=== PATIENT | female | born 1955 | race Caucasian/White ===

== ENCOUNTER → 2019-11-01 14:50 | Outpatient (CLI) | payer BC, SELFPAY ==
[2016-08-20 10:30] VITALS: BMI 43.3
[2019-11-01 17:31] LABS: Hematocrit 35.4 % (37-47); Hemoglobin 11.6 g/dL (12.0-15.0); Mean Corp Hgb Conc 32.8 g/dL (32-36); Mean Corpuscular Hgb 30.8 pg (27.0-32.0); Mean Corpuscular Volume 93.9 fL (81-99); Platelet Count 194 K/mm3 (150-450); RBC Distribution Width CV 14.6 % (11.6-14.6); RBC Distribution Width SD 49.5 fl (35.1-43.9); Red Blood Count 3.77 M/mm3 (4.2-5.4); White Blood Count 3.9 K/mm3 (4.4-11.0)
[2019-11-01 17:38] LABS: Erythrocyte Sedimentation Rate 24 mm/hr (0-30)
[2019-11-01 17:47] LABS: Vitamin B12 214 pg/mL (211-911); Vitamin D,25 Hydroxy 32.7 ng/mL
[2019-11-01 17:58] LABS: BNP,B-Type NATRIURETIC PEPTIDE 40.3 pg/mL (0-100)
[2019-11-01 18:01] LABS: ALB/GLOB Ratio 1.1 RATIO (0.9-2.4); AST(SGOT) 30 U/L (15-37); Alanine Aminotransfer ALT/SGPT 35 U/L (13-56); Albumin, Serum 3.6 g/dL (3.2-5.0); Alkaline Phosphatase 79 U/L (45-117); Anion Gap 6 (5-15); BUN 20 mg/dL (7-18); Chloride 99 mmol/L (98-107); Creatinine, Serum 0.87 mg/dL (0.55-1.02); EST Glomerular Filtration Rate 70 mL/min (>60); Est Glom Filt Rate - Afr Amer 85 mL/min (>60); Globulin 3.2 g/dL (2.2-4.2); Glucose 122 mg/dL (74-106); Iron 96 ug/dL (50-170); Potassium 5.2 mmol/L (3.5-5.1); Protein, Total 6.8 g/dL (6.4-8.2); Sodium Level 129 mmol/L (136-145); Thyroid Stim Hormone (TSH) 1.25 uIU/mL (0.358-3.74)
== END ==
PROVIDERS: PCP Family Medicine; Referring Provider Family Medicine; Visit Provider Family Medicine
DX: I50.9 Heart failure, unspecified (principal); M50.30 Other cervical disc degeneration, unspecified cervical region; R53.83 Other fatigue
CPT/HCPCS: 36415; 80053; 82306; 82607; 83540; 83880; 84443; 85027; 85652

== ENCOUNTER → 2019-11-22 15:33 | Outpatient (CLI) | payer BC, SELFPAY ==
[2016-08-20 10:30] VITALS: BMI 43.3
[2019-11-22 18:16] LABS: Anion Gap 7 (5-15); BUN 18 mg/dL (7-18); BUN/Creat Ratio 17.5 RATIO (10-20); Calcium,Total 8.8 mg/dL (8.5-10.1); Chloride 99 mmol/L (98-107); Creatinine, Serum 1.03 mg/dL (0.55-1.02); EST Glomerular Filtration Rate 58 mL/min (>60); Est Glom Filt Rate - Afr Amer 70 mL/min (>60); Glucose 107 mg/dL (74-106); Potassium 5.3 mmol/L (3.5-5.1); Sodium Level 130 mmol/L (136-145)
== END ==
PROVIDERS: PCP Family Medicine; Referring Provider Family Medicine; Visit Provider Family Medicine
DX: I10 Essential (primary) hypertension (principal)
CPT/HCPCS: 36415; 80048

== ENCOUNTER → 2019-11-28 14:07 | Outpatient (CLI) | payer BC, SELFPAY ==
[2016-08-20 10:30] VITALS: BMI 43.3
[2019-11-28 16:31] LABS: Anion Gap 6 (5-15); BUN 17 mg/dL (7-18); BUN/Creat Ratio 17.8 RATIO (10-20); Calcium,Total 8.7 mg/dL (8.5-10.1); Chloride 98 mmol/L (98-107); Creatinine, Serum 0.96 mg/dL (0.55-1.02); EST Glomerular Filtration Rate 63 mL/min (>60); Est Glom Filt Rate - Afr Amer 76 mL/min (>60); Free T3 2.3 pg/mL (2.18-3.98); Glucose 92 mg/dL (74-106); Sodium Level 130 mmol/L (136-145); T4 Free Direct 1.03 ng/dL (0.76-1.46)
[2019-11-28 17:13] LABS: Osmolality, Serum 276 mOsm/KG (280-301)
== END ==
PROVIDERS: PCP Family Medicine; Referring Provider Family Medicine; Visit Provider Family Medicine
DX: E87.1 Hypo-osmolality and hyponatremia (principal)
CPT/HCPCS: 36415; 80048; 83930; 84439; 84443; 84481

== ENCOUNTER → 2019-11-30 14:10 | Outpatient (CLI) | payer BC, SELFPAY ==
[2019-11-30 15:57] LABS: Urine Sodium 11 mmol/L (Not Establ.)
== END ==
PROVIDERS: Family Medicine; PCP Family Medicine; Referring Provider Family Medicine; Visit Provider Family Medicine
DX: E87.1 Hypo-osmolality and hyponatremia (principal)
CPT/HCPCS: 83935; 84300

== ENCOUNTER → 2020-11-13 10:12 | Outpatient (CLI) | payer MEDICARE, SELFPAY ==
[2016-08-20 10:30] VITALS: BMI 43.3
--- NOTE | 2020-11-13 10:17 | RAD_ITS ---
INDICATION: DDD EXAMINATION/TECHNIQUE: X-RAY - XR Spine Cervical 4 or 5 Views COMPARISON: Previous cervical spine x-rays obtained on 02/16/2016 FINDINGS: Studies of the cervical spine in 6 projections including obliques shows sclerosis of the articular facets at the C3-4, C4-5, and C5-6 levels bilaterally from cervical spondylosis. The neural foramina appear to be widely patent bilaterally. There is very mild narrowing of the C6-7 intervertebral disc space.. RAD/Cerv Spine 4 or 5 Views IMPRESSION: Mild cervical spondylosis the mid cervical spine which has increased when compared with the previous study. Electronically Signed: Bridger Medina DO at 14:14 EDT Tel , Service support ,
== END ==
LOC: MTRAD 10:15
PROVIDERS: PCP Family Medicine; Referring Provider Family Medicine; Visit Provider Family Medicine
DX: M50.30 Other cervical disc degeneration, unspecified cervical region (principal)
CPT/HCPCS: 72050

== ENCOUNTER 2020-12-01 14:19 | Outpatient (RCR) | payer MEDICARE, SELFPAY ==
--- NOTE | 2020-12-01 15:49 | HP.PTEVAL ---
Patient's Visit Information TALISHA BEARD is a 65 year old F referred to Physical Therapy by Dr. Tramaine Sosa MD with a diagnosis of DDD c/s. Date of Evaluation: 12/01/20 Physical Therapist: Faisal Perkins, [place], OCS, CSCS - Visit Plan Frequency: 2-3x /Week Duration: 2-4 Weeks Plan: 2-3x/week for 4 weeks(pt to FLA in about a month) for. Aquatic ex to include. 1. neck ROM, scapular ROM, UE ROM. 2. LE and core strengthening emphasizing posture. 3. Progress to I with pool ex with list. - Subjective Lots of ortho problems over the years and lots of OA in LB. LB is hurting now as is neck . All of it getting progressively worse. 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 Has had x rays and it shows OA. Worse lately and not sure why, must just be progressing as there is narrowing in her spine and spondyloisis. Symptoms include numbness in medial hands 345 digits adn R hand feels weak. Pain starts at base of skulla nd between shoulder blades starts to ache and comes around to sternum. Saw heart doctor adn my heart is fine. Also gets ulnar pain on R all the time. Pain is up to 10/10 and it was lying down flat at night. Feels better if sits straight up. Never goes completely. Current pain is 8/10. LB also hurts. Usually 6/10 in am. Takes a while to get out of bed. Sleep is interrupted as it is hard to get comfortable. Basic ADLs are OK but helps you shower as it is painful to ift arms. Getting dressed she needs help from hubby with shoes and socks. Does some band pulls on door and walks as much as can. Hobbies include gardening but cannot, enjoys redd but cannot. Piano is a hobby and she is unabe to play. - Objective Posture is FW head and scapula. Very little movement to upper half unless asked. kyphotic T/S. c/s ext 22 degrees R rot 22 adn L rot40, self limited by pain. AROM B UE WNL but slow and appears labored. Very weak in thumb ext, wrist flex/ext 3 on R and 3+ L, elbow flexiona dn ext 3+ B, shoulder flexiona nd abd 3+, IR ER shoulders 3+. Pt is able to move easily through AROM in wrist and elbow but unable/willing to resist much for testing stating that it hurts and is weak. Won't let me push down on head for cervical compressiont est. Scap ROM is WNL but slow. Not overly tenderin neck except subocciptial muscles moderately tender. reflexes 1/3 bi and tri. Sensation UE c5 dermatome on R UE numb, also c/o paraesthesia in B ulnar nerve distribution. Pt was 20+ minutes late for therapy today. - Balance/Special Test Scores Oswestry Low Back Score: 43 - Goals Goal 1:: Pt feel 50% better in overall pain levels in necka nd arm to 4/10 at worst Goal Time Frame: 4-6 Weeks Goal 2:: Strength in UE to 4-/5 to allow for playing piano Goal Time Frame: 4-6 Weeks Goal 3:: Pt score < 30 on Oswestry to show improvement in functional pain. Goal Time Frame: 4-6 Weeks Goal 4:: approp HEP to manage(exercises in pool to cotninue in FLA) Goal Time Frame: 4-6 Weeks - Rehabilitation Potential Physical Therapy Diagnosis: DDD cs Rehabilitation Potential: Fair - Anticipated Interventions Patient/Client Instruction: Educate patient on: Condition, Plan of Care For the Purpose of:: To decrease pain, To increase ROM, To improve muscle performance and motor function, To increase tolerance to activity/condition/position, To improve ability of physical actions for home/community/work/leisure Therapeutic Exercise to Include: Strength training, Postural training, Flexibilty training, Gait and locomotor training, In an aquatic setting, Passive ROM, Active ROM For the Purpose of:: To decrease pain, To increase ROM, To improve muscle performance and motor function, To increase tolerance to activity/condition/position, To improve ability of physical actions for home/community/work/leisure, To improve health of tissue Thank you for the opportunity to evaluate your patient. For Medicare and Medicare HMO plans, please review the plan of care and approve it. It will need to be FAXED BACK to us at [phone] for Medicare purposes. For Medicare only, by signing this I certify the plan of care. Please let me know if there are questions or concerns regarding this plan of care. Physician Signature: Date:
--- NOTE | 2021-01-21 09:36 | HP.PTDCNRP_ITS ---
TALISHA BEARD was seen in my office for initial evaluation on 12/01/20. The following Plan of Care was established for this patient: Initial Frequency: 2-3x /Week Initial Duration: 2-4 Weeks Patient/Client Instruction: Educate patient on: Condition, Plan of Care For the Purpose of:: To decrease pain, To increase ROM, To improve muscle performance and motor function, To increase tolerance to activity/condition/position, To improve ability of physical actions for home/co mmunity/work/leisure Therapeutic Exercise to Include: Strength training, Postural training, Flexibilty training, Gait and locomotor training, In an aquatic setting, Passive ROM, Active ROM For the Purpose of:: To decrease pain, To increase ROM, To improve muscle performance and motor function, To increase tolerance to activity/condition/position, To improve ability of physical actions for home/community/work/leisure, To improve health of tissue This patient was last seen in our office 12/01/20. Pertinent comments regarding their Physical therapy will appear below: Pt seen for initial evaluation and POC established. Pt did not schedule or attend any further visits. At this point, it has been over a montha dn I will disocntinue from my care. At this point I will be discontinuing this patient from physical therapy. I would be happy to see this patient again in the future if found appropriate by the physician. Thank you! Faisal Perkins, DPT, OCS, CSCS Balance/Gait/Functional tests - Balance/Special Test Scores Oswestry Low Back Score: 43
== END 2020-12-01 19:00 | disposition home or self-care (01) ==
LOC: PT 14:19
PROVIDERS: PCP Family Medicine; Referring Provider Family Medicine; Visit Provider Family Medicine
DX: M50.30 Other cervical disc degeneration, unspecified cervical region (principal)
CPT/HCPCS: 97161

== ENCOUNTER → 2022-10-04 | Outpatient (CLI) | payer MEDICARE, OTHER, SELFPAY ==
[2022-10-04 15:19] LABS: Hematocrit 34.6 % (37-47); Hemoglobin 11.4 g/dL (12.0-15.0); Mean Corp Hgb Conc 32.9 g/dL (32-36); Mean Corpuscular Hgb 27.7 pg (27.0-32.0); Mean Platelet Vol. 11.1 fl (6.2-12.0); Platelet Count 254 K/mm3 (150-450); RBC Distribution Width CV 13.8 % (11.6-14.6); RBC Distribution Width SD 41.7 fl (35.1-43.9); Red Blood Count 4.12 M/mm3 (4.2-5.4)
[2022-10-04 16:00] LABS: ALB/GLOB Ratio 1.1 RATIO (0.9-2.4); AST(SGOT) 16 U/L (15-37); Alanine Aminotransfer ALT/SGPT 18 U/L (13-56); Albumin, Serum 3.4 g/dL (3.2-5.0); Alkaline Phosphatase 85 U/L (45-117); Anion Gap 6 (5-15); BUN 16 mg/dL (7-18); BUN/Creat Ratio 23.8 RATIO (10-20); Calcium,Total 8.4 mg/dL (8.5-10.1); Chloride 108 mmol/L (98-107); Cholesterol 148 mg/dL (200); Creatinine, Serum 0.67 mg/dL (0.55-1.02); EST Glomerular Filtration Rate 94 mL/min (>60); Est Glom Filt Rate - Afr Amer 113 mL/min (>60); Ferritin 24 ng/mL (8-252); Globulin 3.2 g/dL (2.2-4.2); Glucose 93 mg/dL (74-106); High Density Lipoprotein 48 mg/dL; Iron 59 ug/dL (50-170); Potassium 3.8 mmol/L (3.5-5.1); Protein, Total 6.6 g/dL (6.4-8.2); Sodium Level 141 mmol/L (136-145); Thyroid Stim Hormone (TSH) 0.58 uIU/mL (0.358-3.74); Triglycerides 148 mg/dL; Very Low Density Lipoprotein 30 mg/dL (5-40)
[2022-10-04 16:04] LABS: Vitamin B12 237 pg/mL (211-911); Vitamin D,25 Hydroxy 42.3 ng/mL
== END | disposition home or self-care (01) ==
LOC: MTLAB 12:36
PROVIDERS: PCP Family Medicine; Referring Provider Family Medicine; Visit Provider Family Medicine
DX: D64.9 Anemia, unspecified (principal); I50.9 Heart failure, unspecified; E55.9 Vitamin D deficiency, unspecified; Z63.4 Disappearance and death of family member
CPT/HCPCS: 36415; 80053; 80061; 82306; 82607; 82728; 83540; 84443; 85027

== ENCOUNTER 2024-05-21 11:03 | Emergency (ER) | payer MEDICARE, OTHER, SELFPAY ==
[2024-05-21] VITALS (8 sets, daily range): BP systolic 96–167; BP diastolic 59–84; PULSE 49–90; RESP 12–18; TEMP 36.7–36.8; O2SAT 97–99; BMI 43.4
--- NOTE | 2024-05-21 12:02 | EKG12_ITS ---
Test Reason : LOW HR/DIZZY Blood Pressure : */* mmHG Vent. Rate : 51 BPM Atrial Rate : 51 BPM P-R Int : 186 ms QRS Dur : 108 ms QT Int : 502 ms P-R-T Axes : 72 5 5 degrees QTcB Int : 462 ms Sinus bradycardia Minimal voltage criteria for LVH, may be normal variant ( Jefferson product ) Borderline ECG Confirmed by Silas Pearce ([id number]), telegraph editor MARBIN ALLRED ([id number]) on 05/22/2024 10:06:59 AM Referred By: BB Confirmed By: Silas Pearce
[2024-05-21] MEDS: 0.9% Normal Saline (1000mL) 1,000 ML 999 ML IV (12:12)
[2024-05-21 12:32] LABS: Absolute Lymphocyte Count 0.77 X10^3/uL (0.83-4.51); Absolute Neutrophil Count 3.9 X10^3/uL (2.0-7.7); Basophil# 0.01 X10^3/uL; Basophil% 0.2 % (0-1); Eosinophils% 1.9 % (0-5); Hematocrit 35.3 % (37-47); Hemoglobin 11.9 g/dL (12.0-15.0); Lymphocyte # 0.77 X10^3/ul (0.83-4.51); Mean Corp Hgb Conc 33.7 g/dL (32-36); Mean Corpuscular Hgb 27.9 pg (27.0-32.0); Mean Corpuscular Volume 82.7 fL (81-99); Mean Platelet Vol. 10.7 fl (6.2-12.0); Monocyte# 0.38 X10^3/uL; Monocyte% 7.4 % (0-10); NRBC Flagged by Analyzer 0 % (0-5); Neutrophil # 3.87 X10^3/uL (2.7-7.7); Neutrophil % 75.3 % (47-70); Platelet Count 221 K/mm3 (150-450); RBC Distribution Width CV 13.3 % (11.6-14.6); RBC Distribution Width SD 40.1 fl (35.1-43.9); Red Blood Count 4.27 M/mm3 (4.2-5.4); White Blood Count 5.1 K/mm3 (4.4-11.0)
[2024-05-21 12:54] LABS: Anion Gap 10 (5-15); BUN 26 mg/dL (7-18); BUN/Creat Ratio 15.9 RATIO (10-20); Calcium,Total 8.9 mg/dL (8.5-10.1); Chloride 92 mmol/L (98-107); Creatinine, Serum 1.64 mg/dL (0.55-1.02); EST Glomerular Filtration Rate 33 mL/min (>60); Est Glom Filt Rate - Afr Amer 40 mL/min (>60); Estimated Creatinine Clearance 38.96 ml/min; Glucose 107 mg/dL (74-106); Potassium 3.3 mmol/L (3.5-5.1); Sodium Level 130 mmol/L (136-145); Troponin-I HS 9 pg/mL (3.0-54.0)
--- NOTE | 2024-05-21 13:25 | EX.ED.DYSGE1 ---
HPI History of Present Illness Chief Complaint: General Illness Informant: patient Narrative Narrative: Patient states for the past 5 days she has had influenza-like symptoms with headaches, malaise, congestion, cough, body aches. Had a sick contact with influenza A a couple weeks prior to that. She states that the day after she started getting sick, she took her usual blood pressure medications in the morning and then she stood up and felt lightheaded near syncopal orthostatic, so she checked her blood pressure and it was low. She sat for a while and checked it again later and it was better in the 115 range. She states that she usually does not drink fluids really well so she tried to focus on drinking fluids well over the weekend, she thought she was feeling better and then this morning she was orthostatic again with blood pressure going down into the 70s temporarily and feeling like she would pass out with standing up. Sitting or lying helps. She has had no syncopal episodes. No focal neurologic symptoms. She has avoided taking her lisinopril, metoprolol, and hydralazine for the past 3 days, for including this morning, since the orthostatic symptoms started. She has continued to take her flecainide daily as well as her omeprazole. No chest discomfort, dyspnea, palpitations. [facility] Medical History Sinus arrhythmia Hx of acute heart failure GERD (gastroesophageal reflux disease) HTN (hypertension) Home Medications ?Medication ?Instructions ?Recorded ?Last Taken ?Type ferrous sulfate 325 mg (65 mg 325 mg PO DAILY ANEMIA 09/04/15 02/07/16 History iron) tablet (Iron (ferrous sulfate)) metoprolol tartrate 25 mg tablet 25 mg PO DAILY HEART 09/04/15 08/20/16 07:00 History multivitamin with folic acid 400 1 tab PO DAILY 09/04/15 02/07/16 History mcg tablet (Thera) cetirizine 10 mg capsule (Allergy 10 mg PO DAILY PRN ALLERGY 12/03/15 Unknown History Relief (cetirizine)) acetaminophen 325 mg tablet 650 mg PO Q6H PRN Pain 02/07/16 Unknown History (Tylenol) lisinopril 20 mg tablet 20 mg PO BID BLOOD PRESSURE 02/07/16 08/20/16 07:00 History spironolactone 25 mg tablet 25 mg PO DAILY SWELLING, HEART 02/07/16 02/07/16 History celecoxib 200 mg capsule (Celebrex) 200 mg PO DAILY 06/16/16 Unknown History furosemide 40 mg tablet 40 mg PO DAILY 08/16/16 Unknown History omeprazole 20 mg capsule,delayed 20 mg PO DAILY 08/16/16 08/20/16 07:00 History release Allergy/AdvReac Type Severity Reaction Status Date / Time latex Allergy Hives Verified 05/21/24 11:04 midazolam (From Versed) AdvReac Other Verified 05/21/24 11:04 pseudoephedrine HCl (From AdvReac TACHYCARDIA Verified 05/21/24 11:04 Sudafed) Surgical History (Updated 05/21/24 @ 11:19 by Ynes Mckenzie) History of back surgery History of knee replacement Social History Smoking Status: Never smoker ROS ROS ED Constitutional Constitutional ED: Reports body ache(s) and malaise; Denies chills or fever(s) Eyes Eyes: Denies change in vision or diplopia ENT ENT ED: Reports nasal congestion and rhinorrhea; Denies sore throat Cardiovascular Cardiovascular: Reports lightheadedness; Denies chest pain, palpitations or syncope Respiratory/Chest Respiratory/Chest: Reports cough; Denies dyspnea Gastrointestinal Gastrointestinal: Denies abdominal pain, diarrhea, nausea or vomiting Genitourinary Genitourinary ED: Denies dysuria or hematuria Musculoskeletal Musculoskeletal: Denies back pain or neck pain Integumentary Denies abscess or rash Neurologic Neurologic: Reports headache(s); Denies paresthesias or weakness Psychiatric Psychiatric: Denies anxiety or suicidal thoughts EXAM Physical Exam Const Vital Signs: 05/21/24 11:04 05/21/24 11:06 05/21/24 11:16 Temperature 98.2 F 98.1 F Temperature Source Oral Oral Pulse Rate 90 55 L Pulse Rate [Lying] Pulse Rate [Sitting (for 1 minute prior to obtaining)] Pulse Rate [Standing (for 1 minute prior to obtaining)] Respiratory Rate 18 18 Respiratory Effort Normal Respiratory Pattern Normal Blood Pressure 96/84 H 109/59 L Blood Pressure [Lying] Blood Pressure [Sitting (for 1 minute prior to obtaining)] Blood Pressure [Standing (for 1 minute prior to obtaining)] Blood Pressure Mean 88 75 Blood Pressure Mean [Lying] Blood Pressure Mean [Sitting (for 1 minute prior to obtaining)] Blood Pressure Mean [Standing (for 1 minute prior to obtaining)] Pulse Ox 99 97 Oxygen Delivery Method Room Air Room Air 05/21/24 11:26 05/21/24 12:06 05/21/24 13:00 Temperature 98.1 F 98.0 F Temperature Source Oral Oral Pulse Rate 55 L 57 L Pulse Rate [Lying] Pulse Rate [Sitting (for 1 minute prior to obtaining)] 55 L Pulse Rate [Standing (for 1 minute prior to obtaining)] 49 L Respiratory Rate 14 16 Respiratory Effort Respiratory Pattern Blood Pressure 150/66 H 105/70 Blood Pressure [Lying] 143/70 H Blood Pressure [Sitting (for 1 minute prior to obtaining)] 144/72 H Blood Pressure [Standing (for 1 minute prior to obtaining)] 109/59 L Blood Pressure Mean 94 81 Blood Pressure Mean [Lying] 94 Blood Pressure Mean [Sitting (for 1 minute prior to obtaining)] 96 Blood Pressure Mean [Standing (for 1 minute prior to obtaining)] 75 Pulse Ox 97 97 Oxygen Delivery Method Room Air Room Air 05/21/24 13:45 05/21/24 14:00 Temperature 98.1 F Temperature Source Oral Pulse Rate 50 L Pulse Rate [Lying] 58 L Pulse Rate [Sitting (for 1 minute prior to obtaining)] 57 L Pulse Rate [Standing (for 1 minute prior to obtaining)] 59 L Respiratory Rate 16 Respiratory Effort Respiratory Pattern Blood Pressure 160/69 H Blood Pressure [Lying] 162/60 H Blood Pressure [Sitting (for 1 minute prior to obtaining)] 163/72 H Blood Pressure [Standing (for 1 minute prior to obtaining)] 160/69 H Blood Pressure Mean 99 Blood Pressure Mean [Lying] 94 Blood Pressure Mean [Sitting (for 1 minute prior to obtaining)] 102 Blood Pressure Mean [Standing (for 1 minute prior to obtaining)] 99 Pulse Ox 98 Oxygen Delivery Method Room Air Positive well nourished and well developed General Appearance ED: well developed and NAD HEENT Reports moist mucous membranes normocephalic and atraumatic Eyes PERRL and EOMs intact bilaterally Neck full ROM and supple Resp normal respiratory effort and clear to auscultation bilaterally Cardio regular rate, regular rhythm and no murmurs Rate: bradycardia GI non-tender and non-distended Auscultation: normoactive bowel sounds Palpation: soft Back/Spine no CVA tenderness General Back: other FROM Extremity normal to inspection General Extremety ED: Negative for edema, pulses abnormal or tenderness General Extremity: Negative for edema or pulses abnormal Neuro oriented x3, CN's II-XII intact bilaterally and no sensory deficits noted Sensorium / Orientation: awake and alert Motor Exam: strength 5/5 throughout Skin no rashes or lesions noted and no wounds MDM MDM MDM Narrative Medical decision making narrative: Orthostatics are positive here with a blood pressure dropping over 30 points. I am concerned about her bradycardia. She is concerned about being dehydrated, however I advised her that if that was the case she would be more likely to be tachycardic. Obtained an EKG, it appears to show sinus bradycardia without any other apparent acute issues or signs of block. Her BUN and creatinine are increased compared with usual, and her troponin is normal reassuring. The rest of her workup is only showing hypokalemia that is mild. We gave her a liter of fluids and rechecked her orthostatics. She felt much better and orthostatics were negative afterwards, heart rate still around 50. We talked about her medicines in more detail. She is taking lisinopril, she is taking hydralazine 10 mg 3 times daily, flecainide 100 mg twice daily with her last dose being last night she did not take it yet this a.m., metoprolol 12.5 mg twice daily. She has not taken the metoprolol, hydralazine, or lisinopril in the last 3 days. I discussed all this with cardiology Dr. Pearce. He agrees with me to have the patient discontinue her flecainide, and states that it should not be used to treat ectopy, and he recommends her staying off of it and following up with them in the office. Also agrees with temporarily discontinuing the lisinopril, hydralazine, and metoprolol until her blood pressures stay higher and her heart rate increases, preferring the metoprolol is the first drug to add back as long as her heart rate is 65 or so and maintaining. Patient is comfortable that plan will follow-up as an outpatient. As expected her viral swab returned positive for influenza A. Lab Data Attestation: I reviewed the patient's lab results. Labs: Laboratory Results - last 24 hr 05/21/24 11:30 WBC 5.1 RBC 4.27 Hgb 11.9 L Hct 35.3 L MCV 82.7 MCH 27.9 MCHC 33.7 RDW Std Deviation 40.1 RDW Coeff of Joy 13.3 Plt Count 221 MPV 10.7 Immature Gran % (Auto) 0.200 Neut % (Auto) 75.3 H Lymph % (Auto) 15.0 L Walsh % (Auto) 7.4 Eos % (Auto) 1.9 Baso % (Auto) 0.2 Absolute Neuts (auto) 3.9 Absolute Lymphs (auto) 0.77 L Nucleated RBC % 0 Sodium 130 L Potassium 3.3 L Chloride 92 L Carbon Dioxide 28.0 Anion Gap 10 BUN 26 H Creatinine 1.64 H Estim Creat Clear Calc 38.96 Est GFR (MDRD) Af Amer 40 L Est GFR (MDRD) Non-Af 33 L BUN/Creatinine Ratio 15.9 Glucose 107 H Calcium 8.9 Troponin I High Sens 9 Rhythm Strip Rhythm Strip: Sinus bradycardia Rate: 55 Ectopy: None EKG Initial EKG: Attestation: I personally reviewed and interpreted this EKG as follows: Interpretation: No Acute Injury Pattern and Sinus Bradycardia Comments: Nml axis & intervals, except for R-R Prior EKG tracings: available for review Prior: Unchanged (except for rate) Management Discussion w/another healthcare provider: Invoice Clerk (Cardiology Dr. Pearce) Discharge Plan Triage Chief Complaint: General Illness ED Provider: Zeeshan Levin Dx/Rx/DC Orders Clinical Impression: Orthostatic hypotension, Bradycardia, Influenza A, LUISA (acute kidney injury) Instructions: ED Hypotension, Orthostatic Prescriptions: No Action ferrous sulfate [Iron (ferrous sulfate)] 325 MG tablet 325 mg PO DAILY Patient Comments: supplement metoprolol tartrate 25 MG tablet 25 mg PO DAILY Patient Comments: blood pressure/ heart multivitamin with folic acid [Thera] 1 TABLET tablet 1 tab PO DAILY Patient Comments: supplement Allergy Relief (cetirizine) 10 MG capsule 10 mg PO DAILY PRN (Reason: ALLERGY) Patient Comments: ALLERGIES lisinopril 20 MG tablet 20 mg PO BID acetaminophen [Tylenol] 325 MG tablet 650 mg PO Q6H PRN (Reason: Pain) Patient Comments: pain spironolactone 25 MG tablet 25 mg PO DAILY celecoxib [Celebrex] 200 MG capsule 200 mg PO DAILY omeprazole 20 MG capsule 20 mg PO DAILY furosemide 40 MG tablet 40 mg PO DAILY Primary Care Provider: Tito Sosa Referrals: Tito Sosa MD [Primary Care Provider] - Silas Pearce MD [Med Staff - Active Staff] - As soon as possible Activity Restrictions/Additional Instructions: Discontinue your flecainide. Keep an eye on your vital signs and drink plenty of fluids especially something like propel, vitamin water, Gatorade, Powerade with electrolytes. Stay off of lisinopril, hydralazine, metoprolol for now. When your blood pressures are consistently higher and you want to restart your blood pressure medication, if your heart rate is 65 or higher, then preferentially start back on the metoprolol. If it is in the 60 range or below, then choose lisinopril instead. Print Language: Gambian Disposition Disposition: Home, Self Care
== END 2024-05-21 15:32 | disposition home or self-care (01) ==
PROVIDERS: Emergency Provider Emergency Medicine; PCP Family Medicine; Visit Provider Emergency Medicine
DX: J10.1 Influenza due to other identified influenza virus with other respiratory manifestations (principal); I95.1 Orthostatic hypotension; N17.9 Acute kidney failure, unspecified; R00.1 Bradycardia, unspecified
CPT/HCPCS: 80048; 84484; 85025; 87631; 93005; 96360; 96361; 99283; A4216

== ENCOUNTER → 2024-08-30 | Outpatient (CLI) | payer MEDICARE, OTHER, SELFPAY | END | disposition home or self-care (01) | PROVIDERS: PCP Internal Medicine Infectious Disease; Referring Provider Internal Medicine Cardiovascular Disease; Visit Provider Internal Medicine Cardiovascular Disease | DX: I49.3 Ventricular premature depolarization (principal) | CPT/HCPCS: 93225; 93226 ==